=== PATIENT | male | born 1970 | race Caucasian/White ===

== ENCOUNTER 2017-02-02 07:08 | Emergency (ER) | payer OTHER ==
[~2017-02-02] VITALS: Ht 175.3 cm; Wt 97.7 kg
[2017-02-02] MEDS ORDERED: ASPIRIN 32325 MG/TAB PO (07:26)
[2017-02-02 11:03] VITALS: BP 125/81
== END 2017-02-02 11:03 | disposition home or self-care (01) ==
LOC: ED 07:08
DX: N23 Unspecified renal colic (principal); R73.9 Hyperglycemia, unspecified; I10 Essential (primary) hypertension
CPT/HCPCS: J1885; J2405; J3010; J7030